=== PATIENT | male | born 1965 | race Caucasian/White ===

== ENCOUNTER 2025-03-18 21:30 | Inpatient (IN) | payer OTHER ==
[~2025-03-18] VITALS: Ht 170.2 cm; Wt 79.8 kg
[2025-03-18 21:49] LABS: BASOPHILS % 0.8 % (0.0-2.0); EOSINOPHILS % 1.2 % (0.0-5.0); HEMATOCRIT. 45.5 % (42.0-52.0); HEMOGLOBIN. 15.3 g/dL (14.0-18.0); LYMPHOCYTES % 38.1 % (20.0-50.0); MEAN CORPUSCULAR HEMOGLOBIN 30.4 pg (28.0-32.0); MEAN CORPUSCULAR HGB CONC 33.7 g/dL (31.0-37.0); MEAN CORPUSCULAR VOLUME 90.1 fL (80.0-94.0); MEAN PLATELET VOLUME 7.6 fl (7.4-10.4); MONOCYTES % 9.2 % (2.0-8.0); NEUTROPHILS % 50.7 % (40.0-76.0); PLATELET 277 x1000/uL (130-400); RED BLOOD CELL COUNT 5.05 mill/uL (4.7-6.1); RED CELL DISTRIBUTION WIDTH 13.4 % (11.6-14.6); WHITE BLOOD COUNT 6.5 x1000/uL (4.5-11.0)
[2025-03-18 21:59] LABS: PARTIAL THROMBOPLASTIN TIME 25.1 sec (23.4-31.0); PROTHROMBIN TIME 10.6 sec (9.6-11.0)
[2025-03-18 22:00] LABS: CHLORIDE 104 mEq/L (98-107); SODIUM 138 mEq/L (136-145)
[2025-03-18 22:01] LABS: CALCIUM 8.8 mg/dL (8.7-10.4); CARBON DIOXIDE 24 mEq/L (21-32)
[2025-03-18 22:06] LABS: CREATININE 0.9 mg/dL (0.6-1.3); ETHANOL BLOOD < 10 mg/dL (<10); GLUCOSE 365 mg/dL (70-105); UREA NITROGEN BLOOD 8 mg/dL (9-23)
[2025-03-18 22:07] LABS: TROPONIN I HIGH SENSITIVITY 13 ng/L (3.0-53)
[2025-03-18 22:08] LABS: BETA HYDROXYBUTYRATE 0.1 mMol/L (0.0-0.3); PHOSPHORUS 2.1 mg/dL (2.5-4.9)
[2025-03-19] MEDS: HYDRALAZINE 20MG/ML VIAL IV ONE (00:25)
[2025-03-19] MEDS ORDERED: MAGNESIUM/ALUMINUM HYDROXIDE/SIMETHICONE 30ML UDC PO PRN (00:30)
[2025-03-19] MEDS ORDERED: ACETAMINOPHEN 325MG TABLET PO PRN (00:30)
[2025-03-19] MEDS ORDERED: ONDANSETRON HCL 4MG/2ML INJ IV PRN (00:30)
[2025-03-19] MEDS ORDERED: CLONIDINE 0.1MG TABLET PO PRN (00:30)
[2025-03-19] MEDS ORDERED: IPRATROPIUM/ALBUTEROL 0.5-3(2.5)MG/3ML NEB NEB PRN (00:30)
[2025-03-19] MEDS ORDERED: MORPHINE SULFATE 4 MG/ML INJ (FOR IV/IM USE) IV PRN (00:30)
[2025-03-19] MEDS ORDERED: HYDROCODONE/ACETAMINOPHEN 5/325MG TABLET PO PRN (00:30)
[2025-03-19] MEDS ORDERED: DEXTROSE 50% WATER 50ML SYRINGE IV PRN (00:30)
[2025-03-19] MEDS: SODIUM CHLORIDE 0.9% 1,000 ML IV SCH (00:30)
[2025-03-19] MEDS ORDERED: ZOLPIDEM TARTRATE 5MG TABLET PO PRN (00:30)
[2025-03-19 00:33] LABS: TROPONIN I HIGH SENSITIVITY 11 ng/L (3.0-53)
[2025-03-19] MEDS: BLOOD SUGAR DIAGNOSTIC STRIP TEST SCH (07:57)
[2025-03-19] MEDS ORDERED: NALOXONE HCL 0.4MG/ML VIAL IV PRN (08:45)
[2025-03-19] MEDS: PANTOPRAZOLE SODIUM 40 MG/VIAL IV SCH (10:15)
[2025-03-19] MEDS: ENOXAPARIN 40MG/0.4ML SYR SUBCUT SCH (10:17)
[2025-03-19] MEDS: ASPIRIN 81MG TABLET PO SCH (10:23)
[2025-03-19] MEDS: INSULIN LISPRO 100 UNITS/ML SUBCUT SCH (10:25)
[2025-03-19 11:29] LABS: CREATINE KINASE MB FRACTION 1.2 ng/mL (0.5-3.6)
[2025-03-19 11:32] VITALS: BP 139/87; PULSE 93; RESP 18; TEMP 36.3
[2025-03-19] MEDS: LOSARTAN 25 MG TABLET PO SCH (13:56)
[2025-03-19] MEDS ORDERED: METOPROLOL TARTRATE 5MG/5ML VIAL IV PRN (16:30)
[2025-03-19 16:36] LABS: CREATINE KINASE MB FRACTION 1.2 ng/mL (0.5-3.6)
[2025-03-19] MEDS: MECLIZINE 25MG TABLET PO SCH (17:34)
[2025-03-19] MEDS: METOPROLOL TARTRATE 50MG TABLET PO SCH (17:38)
[2025-03-19] MEDS ORDERED: ATOR10TA69 PO (18:20)
[2025-03-19] MEDS ORDERED: GLIM4TAB36 PO (18:25)
[2025-03-19] MEDS ORDERED: METF-907 MT (18:29)
[2025-03-19 20:00] VITALS: BP 127/93; PULSE 68; RESP 18; TEMP 36.4; O2SAT 98
[2025-03-19] MEDS: ATORVASTATIN CALCIUM 40MG TABLET PO SCH (20:53)
[2025-03-20] VITALS: BP 131/93; PULSE 61; RESP 19; TEMP 36.6; O2SAT 99
[2025-03-20 04:14] VITALS: BP_SYST 131; BP_SYST 95; BP_DIAS 59; BP_DIAS 93; PULSE 61; PULSE 62; RESP 18; RESP 19; TEMP 36.4; O2SAT 96; O2SAT 99
[2025-03-20 08:00] VITALS: BP 109/79; PULSE 67; RESP 18; TEMP 35.9; O2SAT 98
[2025-03-20 08:17] LABS: CHLORIDE 108 mEq/L (98-107); POTASSIUM 3.8 mEq/L (3.5-5.1); SODIUM 141 mEq/L (136-145)
[2025-03-20 08:18] LABS: CARBON DIOXIDE 25 mEq/L (21-32)
[2025-03-20 08:23] LABS: CREATININE 0.6 mg/dL (0.6-1.3); UREA NITROGEN BLOOD 7 mg/dL (9-23)
[2025-03-20] MEDS ORDERED: IOHEXOL-350 100 ML BOTTLE ONE ×2 (09:00→11:09)
[2025-03-20] MEDS: NITROGLYCERIN SPRAY/4.9GM CAN TL ONE (09:00)
[2025-03-20 09:09] LABS: GLUCOSE 176 mg/dL (70-105)
[2025-03-20] MEDS ORDERED: METO-539 PO (10:27)
[2025-03-20] MEDS ORDERED: MECL-299 PO (10:27)
[2025-03-20] MEDS ORDERED: LOSA25TA26 PO (10:27)
[2025-03-20] MEDS ORDERED: ASPI-1160 PO (10:27)
[2025-03-20 12:00] VITALS: BP 114/76; PULSE 69; RESP 18; TEMP 36.7; O2SAT 100
[2025-03-20 15:27] VITALS: BP 134/69; PULSE 69; TEMP 97.6; O2SAT 99
[2025-03-20 16:00] VITALS: BP 132/100; PULSE 109; RESP 19; TEMP 37.8; O2SAT 98
== END 2025-03-20 16:08 | disposition short-term general hospital (02) | DRG 282 ==
LOC: ER 21:30 → 8WST 23:48 → EDBEDREQ 23:55 → EDBEDREQTM 23:55 → ENRESERV 03-19 07:46
PROVIDERS: ADMIT Internal Medicine; ATTEND Internal Medicine
DX: I21.3 ST elevation (STEMI) myocardial infarction of unspecified site (principal); E11.65 Type 2 diabetes mellitus with hyperglycemia; I10 Essential (primary) hypertension; Z79.82 Long term (current) use of aspirin; Z79.899 Other long term (current) drug therapy; Z82.49 Family history of ischemic heart disease and other diseases of the circulatory system; Z87.442 Personal history of urinary calculi; Z87.891 Personal history of nicotine dependence; Z86.39 Personal history of other endocrine, nutritional and metabolic disease
CPT/HCPCS: 36415; 71045; 75571; 80048; 80320; 82010; 82553; 82962; 83036; 83735; 83880; 84100; 84484; 85025; 93005; 93306; 93970; 99285; J0360; J1650; J1815; J2470; J8597; Q9967; G0480